=== PATIENT | female | born 2000 | race African-American/Black ===

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

== ENCOUNTER 2021-09-06 21:08 | Inpatient (IN) ==
[2021-09-06] MEDS ORDERED: MEPERIDINE 50 MG/1 ML VIAL IV PRN (21:47)
[2021-09-06] MEDS ORDERED: BUTORPHANOL 2 MG/ML VIAL IV PRN (21:47)
[2021-09-06] MEDS ORDERED: LACTATED RINGERS 500 ML IV PRN (21:47)
[2021-09-06] MEDS ORDERED: ONDANSETRON 4 MG/2 ML VIAL IV PRN (21:47)
[2021-09-06] MEDS ORDERED: CITRIC ACID/SODIUM CITRATE 30 ML UDCUP PO ONE (21:49)
[2021-09-06] MEDS ORDERED: diphenhydrAMINE 50 MG/1 ML VIAL IV PRN (21:49)
[2021-09-06] MEDS ORDERED: NALOXONE 0.4 MG/ML VIAL IV PRN (21:49)
[2021-09-06] MEDS ORDERED: FAMOTIDINE 20 MG/2 ML VIAL IV ONE (21:49)
[2021-09-06] MEDS ORDERED: ePHEDrine 50 MG/ML VIAL IV PRN (21:49)
[2021-09-06] MEDS ORDERED: PROMETHAZINE 25 MG/1 ML VIAL IM PRN (21:49)
[2021-09-06] MEDS ORDERED: hydrOXYzine HCL 25 MG/1 ML VIAL IM PRN (21:49)
[2021-09-06] MEDS ORDERED: fentaNYL 2 MCG/ROPIV 0.2% EPID 100 ML EPIDURAL SCH (22:00)
[2021-09-06] MEDS: LACTATED RINGERS 1,000 ML IV SCH ×2 (22:43→23:54)
[2021-09-06 23:36] LABS: Basophils % 0.3 % (0.0-0.8); Eosinophils # 0.1 10*3/uL (0.0-0.87); Eosinophils % 1.2 % (0.00-10.9); Hematocrit 30.3 VOL% (35.7-47.0); Hemoglobin 10.2 GM/DL (12.0-16.0); Immature Granulocytes % 1.2 %; Immature Granulocytes Absolute 0.08 #; Lymphocytes % 30.2 % (21.3-54.2); Mean Corpuscular HGB Conc 33.7 GM/DL (32-36); Mean Corpuscular Volume 97.7 FL (87-102); Mean Platelet Volume 9.9 FL (9.6-12.0); Monocytes % 7.6 % (1.7-12.7); Neutrophils % 59.5 % (38.7-73.9); Platelet Count 176 T/CUMM (130-400); Red Cell Distribution Width 13.2 % (9.3-17.3); White Blood Count 6.8 T/CUMM (4-12)
[2021-09-06 23:51] LABS: Alanine Aminotransferase 10 U/L (13-56); Albumin 2.6 G/DL (3.4-5.0); Alkaline Phosphatase 101 U/L (45-117); Aspartate Amino Transferase 14 U/L (0-37); Bilirubin,Total < 0.39 MG/DL (0.20-1.00); Blood Urea Nitrogen 4 MG/DL (7-18); Calcium 8.1 MG/DL (8.5-10.1); Carbon Dioxide 23 MMOL/L (21-32); Estimated Glom Filtration Rate 166 ML/MIN; Glucose 78 MG/DL (74-106); Osmolality,Calculated 270.7 MOS/KG (273-304); Potassium 3.5 MMOL/L (3.5-5.1); Sodium 138 MMOL/L (136-145); Total Protein 6.1 G/DL (6.4-8.2); Uric Acid 3.2 MG/DL (2.6-6.0)
[2021-09-06 23:54] LABS: Atypical Lymphocytes 2+
[2021-09-06 23:55] LABS: Hypochromia 2+; Platelet Estimate Normal
[2021-09-07 01:51] LABS: Bilirubin,Urine Negative (Negative); Blood, Urine Negative (Negative); Glucose,Urine (UA) Negative (Negative); Ketones,Urine Negative (Negative); Nitrite,Urine Negative (Negative); Protein,Urine Negative; RBC,Urine 2 /HPF (0-4); Urine Appearance CLEAR (Clear); Urine Color Colorless (Yellow); Urine Specific Gravity 1.003 (1.001-1.035); Urine Urobilinogen < 2.0 EU/DL (<2.0)
[2021-09-07] MEDS: LACTATED RINGERS 1,000 ML IV SCH (05:35)
[2021-09-07] MEDS ORDERED: miSOPROStoL 200 MCG TABLET ONE (05:35)
[2021-09-07] MEDS ORDERED: SODIUM CHLORIDE 0.9% 0 ML IV ONE (05:36)
[2021-09-07] MEDS ORDERED: METHYLERGONOVINE 0.2 MG/1 ML AMP ONE (05:36)
[2021-09-07] MEDS ORDERED: OXYTOCIN/LR 20 UNIT/1,000 ML BAG IV ONE (05:36)
[2021-09-07] MEDS ORDERED: TRANEXAMIC ACID 1,000 MG/10 ML VIAL ONE (05:36)
[2021-09-07] MEDS ORDERED: CARBOPROST TROMETHAMINE 250 MCG/ML AMP IM ONE (05:37)
[2021-09-07] MEDS: OXYTOCIN/LR 20 UNIT/1,000 ML BAG IV SCH ×2 (05:58→07:49)
[2021-09-07 06:37] LABS: Cord Arterial Blood HCO3 18.5 MMOL/L
[2021-09-07 06:42] LABS: Cord Venous Blood HCO3 19.3 MMOL/L; Cord Venous Blood PO2 33.4
[2021-09-07] MEDS ORDERED: IBUPROFEN 800 MG TABLET PO ONE (08:07)
[2021-09-07] MEDS: ACETAMINOPHEN/CODEINE 300-30 MG TABLET PO PRN ×2 (11:40→18:41)
[2021-09-07] MEDS: IBUPROFEN 800 MG TABLET PO PRN ×2 (15:00→21:25)
[2021-09-07] MEDS: DOCUSATE SODIUM 100 MG CAPSULE PO SCH (21:25)
[2021-09-07] MEDS: FERROUS SULFATE 325 MG TABLET PO SCH (21:25)
[2021-09-08] MEDS: ACETAMINOPHEN/CODEINE 300-30 MG TABLET PO PRN ×2 (00:28→06:17)
[2021-09-08] MEDS: IBUPROFEN 800 MG TABLET PO PRN ×3 (03:44→16:41)
[2021-09-08] MEDS ORDERED: INFLUENZA VIRUS VACCINE 0.5 ML SYRINGE IM ONE (09:00)
[2021-09-08] MEDS: DOCUSATE SODIUM 100 MG CAPSULE PO SCH ×2 (10:41→22:00)
[2021-09-08] MEDS: FERROUS SULFATE 325 MG TABLET PO SCH ×2 (10:41→21:59)
[2021-09-08] MEDS: oxyCODONE/ACETAMINOPHEN 5-325 MG TABLET PO PRN ×3 (10:43→22:02)
[2021-09-09] MEDS: IBUPROFEN 800 MG TABLET PO PRN ×2 (00:02→07:55)
[2021-09-09] MEDS: oxyCODONE/ACETAMINOPHEN 5-325 MG TABLET PO PRN (04:10)
[2021-09-09] MEDS: DOCUSATE SODIUM 100 MG CAPSULE PO SCH (10:12)
[2021-09-09] MEDS: FERROUS SULFATE 325 MG TABLET PO SCH (10:12)
[2021-09-09 10:29] VITALS: BP 132/74
== END 2021-09-09 13:00 | disposition home or self-care (01) | DRG 560 ==
LOC: N.LDOUT 21:08 → N.LD 21:11 → N.OB 09-07 08:48
PROVIDERS: ADMIT Obstetrics & Gynecology; ATTEND Obstetrics & Gynecology